=== PATIENT | female | born 1950 | race Caucasian/White ===

== ENCOUNTER 2016-11-02 21:12 | Emergency (ER) | payer OTHER ==
[2016-11-02 21:20] VITALS: BP 158/83; PULSE 68; RESP 18; TEMP 98.4; O2SAT 98
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
[2016-11-02] MEDS ORDERED: TETANUS/DIPHTHERIA TOXOID ADULT 0.5 ML VIAL IM ONE (23:00)
[2016-11-02] MEDS ORDERED: CYCLOBENZAPRINE HCL 10 MG TAB PO ONE (23:00)
[2016-11-02] MEDS ORDERED: NAPROXEN 500 MG TAB PO ONE (23:00)
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
[2016-11-03] MEDS ORDERED: DICL50TA3 PO (00:33)
[2016-11-03] MEDS ORDERED: CYCL1TAB29 PO (00:33)
== END 2016-11-03 00:54 | disposition home or self-care (01) ==
LOC: NEPB 21:12
DX: S40.012A Contusion of left shoulder, initial encounter (principal); S60.222A Contusion of left hand, initial encounter; V43.62XA Car passenger injured in collision with other type car in traffic accident, initial encounter; Y92.410 Unspecified street and highway as the place of occurrence of the external cause
CPT/HCPCS: 73030; 73130; 90471; 90714